=== PATIENT | female | born 1965 | race Caucasian/White ===

== ENCOUNTER 2019-05-01 04:56 | Inpatient (IN) ==
--- NOTE | 2019-04-10 13:05 | PAT Medication Instructions ---
Medication Instructions Date of Service April 10, 2019 Home Medications acetaminophen [Tylenol Extra Strength] 500 mg PO UD PRN ibuprofen 800 mg PO UD PRN ASK your surgeon for instructions ibuprofen 800 mg PO UD PRN Take morning of surgery With a small sip of water, OTHERWISE NOTHING TO EAT OR DRINK AFTER MIDNIGHT: acetaminophen [Tylenol Extra Strength] 500 mg PO UD PRN (okay to take up to 4 hours prior to surgery if needed) Take evening before surgery acetaminophen [Tylenol Extra Strength] 500 mg PO UD PRN (if needed) Other Notes If you have any questions please call us at [phone] or [phone] or [phone] or [phone]
--- NOTE | 2019-04-10 14:00 | Anesthesiology Consultation ---
Date of Service April 10, 2019 Assessment & Plan (1) Encounter for pre-operative examination: Chart Review Chart Review: Pending: Refer to Additional Notes / Consult section (pending preop testing (labs, EKG, CXR)) and Patient seen in Pre Admission Testing Teaching & Discussion Pre-Anesthesia Teaching/Discussion Notes: Instructed NPO after midnight before surgery,except medications with 15 cc of water. Medication instructions prov ided according to the PAT guidelines. History Surgery Operation Date: 05/01/19 12:30 Proposed Procedures p Right Total Hip Replacement - Grayson Gil MD Height/Weight Height: 5 ft 6 in Weight: 123.9 kg Allergies Allergy/AdvReac Type Severity Reaction Status Date / Time No Known Allergies Allergy Unverified 04/09/19 09:01 Medications Home Medications Medication Instructions Recorded Confirmed Last Taken acetaminophen [Tylenol Extra 500 mg PO UD PRN 04/09/19 04/09/19 Unknown Strength] ibuprofen 800 mg PO UD PRN 04/09/19 04/09/19 Unknown Past Medical History Medical History Venous ulcer of left leg hx; per wound clinic 03/26/19 ([facility]): no debridement required and discharged due to wound healing (surgeon aware) Degenerative joint disease (DJD) of hip Impaired mobility chronic LLE "stiffness" with limited ROM (hx knee dislocation) Morbid obesity Urinary incontinence chronic Exercise / Class Metabolic Activity III < 4 Walking/Shop/Light housework (uses walker PRN) Past Surgical History Surgical History H/O left breast biopsy + [facility] History of hysterectomy Past Anesthesia History No Hx of Anesthesia Complications and No Family Hx of Anesthesia Complications History of PONV No Hx of PONV and No Hx of Motion Sickness Social History Smoking Status: Never smoker Do You Dip or Chew Tobacco: No Hx Alcohol Use: No Hx Substance Use: No substance use type: does not use Review of Systems Patient denies chest pain, shortness of breath, reflux, cough, wheezing, palpitations. Physical Exam Vital Signs VITALS BP 135/71 P 64 TEMP 97.7 SP02 97%RA RESP 16 PHYSICAL Full neck and c-spine range of motion. Full TMJ range of motion. TMD 3 finger breaths Mallampati Score 1 Dentition: edentulous Lungs: clear throughout to auscultation Cardiac: regular rate and rhythm, no murmurs noted Spine: normal Carotid arteries: negative bruit Extremities: no edema
--- NOTE | 2019-04-10 15:18 | XRay Report ---
XR chest Pre-admission PA/Lat CLINICAL HISTORY: PAT preoperative evaluation COMPARISON STUDY: No previous studies for comparison. FINDINGS: The bones soft tissues and hemidiaphragms are normal. The cardiomediastinal silhouette is n ormal. The lungs are clear. The pulmonary vasculature is normal. IMPRESSION: Negative chest. The above report was generated using voice recognition software. It may contain grammatical, syntax or spelling errors. Electronically signed by: Andres Barbour M.D. 04/10/2019 3:17 PM
[2019-04-10 15:49] LABS: Basophils # (auto) 0.02 K/uL (0-0.2); Basophils % (auto) 0.3 %; Eosinophils # (auto) 0.23 K/uL (0-0.5); Eosinophils % (auto) 3.9 %; Lymphocytes # (auto) 2.01 K/uL (1.2-3.4); Lymphocytes % (auto) 33.8 %; Mean Corpuscular Hemoglobin 28.2 pg (25-34); Mean Corpuscular Hgb Conc 32.5 g/dL (32-36); Mean Corpuscular Volume 86.8 fL (80-100); Mean Platelet Volume 9.4 fL (7.4-10.4); Monocytes # (auto) 0.33 K/uL (0.11-0.59); Monocytes % (auto) 5.6 %; Neutrophils # (auto) 3.35 K/uL (1.4-6.5); Neutrophils % (auto) 56.4 %; Platelet Count 245 K/uL (130-400); RDW Coefficient of Variation 13.8 % (11.5-14.5); RDW Standard Deviation 43.7 fL (36.4-46.3); Red Blood Count 4.61 M/uL (4.2-5.4); White Blood Count 5.94 K/uL (4.8-10.8)
[2019-04-10 15:58] LABS: BUN Creatinine Ratio 26.1 (10-20); C Reactive Protein 1.13 mg/dl (0-0.29); Calcium 9.1 mg/dl (8.5-10.1); Creatinine Clr Calc Pharmacy 147.4 ml/min; Est GFR (African American) 121.5; Est GFR (Non-African American) 104.8; Potassium 3.7 mmol/L (3.5-5.1)
[2019-04-10 16:07] LABS: Partial Thromboplastin Time 26.1 Seconds (21.0-31.0); Prothrombin Time 10.3 Seconds (9.0-12.0)
--- NOTE | 2019-04-25 19:24 | History and Physical Report ---
DATE OF ADMISSION: 05/01/2019 CHIEF COMPLAINT: Right hip pain. HISTORY OF PRESENT ILLNESS: A 54-year-old female who presents for surgical treatment of right hip. The patient had about a year and half history of right hip pain and discomfort, describes it has gotten worse over time. She describes lateral hip pain, groin pain, thigh pain. She has actually resorted to using a walker to get around for the past 6-[address] Chopra initially who would not do her surgery due to her BMI. She also had a leg wound that she is getting to heal. We have been treating her conservatively without adequate relief. She has gotten leg wound to heal, would now like to have her right hip replaced. She has taken various medicines include hydrocodone, trying to manage her pain. She uses a walker. She has nighttime pain. She has attempted weight loss, but unsuccessful due to her limited mobility. PAST MEDICAL HISTORY: 1. Obesity with BMI of 44. 2. Spine arthritis. 3. Left leg wound. PAST SURGICAL HISTORY: Previous surgeries include: 1. Hysterectomy. 2. Oral surgery. ALLERGIES: None. CURRENT MEDICATIONS: 1. Tylenol. 2. Ibuprofen. SOCIAL HISTORY: A 54-year-old female. . Rare alcohol intake. Does not smoke. FAMILY HISTORY: Noncontributory. REVIEW OF SYSTEMS: Negative for diabetes, neurologic problems, vascular problems, bleeding disorders. Denies any chest pain or shortness of breath. No history of DVT or PE. PHYSICAL EXAMINATION: GENERAL: Fairly large middle-aged female, looks to be in reasonably good health. HEENT: Benign. NECK: Supple, no lymphadenopathy. LUNGS: Clear to auscultation. HEART: Regular rate and rhythm. ABDOMEN: Soft, nontender, nondistended. EXTREMITIES: Grossly neurovascularly intact except as follows. Examination of the right hip and leg reveals patient walks with markedly antalgic gait. She is using a walker to walk. There is no significant swelling in her right leg. She has mild edema diffusely. She is about half a centimeter short on the right side compared to the left. She has pain with any type of hip motion. She has got stiffness with hip motion. Examination of the left leg reveals her to be wearing a calf high WANDA stocking. She has got some mild chronic stasis changes. The wound from previously looks healed. No signs of cellulitis. X-RAYS: X-rays of the right hip were reviewed. It shows advanced right hip DJD. She has complete loss of her superior joint space. She has cystic change of the femoral head and acetabulum. She has got collapse of the femoral head. Bone density otherwise looks good. ASSESSMENT: A 54-year-old female with advanced right hip degenerative joint disease. She has failed conservative care. She has attempted weight loss unsuccessfully. She did have this left leg wound, which is likely related to underlying stasis, which is now healed and she would like to have her right hip fixed. PLAN: We will take her to the Operating Room and do a right total hip replacement. The risks and benefits of this procedure were explained to the patient including but not limited to DVT, PE, , infection, neurological injury, vascular injury, bleeding problem, pain, limited range of motion, stiffness, failure to relieve symptoms, incomplete relief of symptoms, need for further surgery in future, fracture, leg length inequality, nerve palsy, etc. The patient understands and desires to proceed. Informed consent was obtained. She is fully aware at her young age, this might need to be redone in the future. She has also had increased risk of infection with this stasis changes and this history of ulcer. She is aware of all this and would like to proceed. As far as discharge plans, she should be able to be discharged to home likely with some home health. LY
[2019-05-01] MEDS ORDERED: LR 60ML/HR IV SCH (06:00)
[2019-05-01] MEDS ORDERED: METOCLOPRAMIDE HCL 10 MG TABLET PO SCH (06:00)
[2019-05-01] MEDS ORDERED: GABAPENTIN 900 MG DOSE PO SCH (06:00)
[2019-05-01] MEDS ORDERED: LR 15ML/HR IV SCH (06:00)
[2019-05-01] MEDS ORDERED: CEFAZOLIN 3000MG 72.5 ML IV SCH (06:00)
[2019-05-01] MEDS ORDERED: FAMOTIDINE 20 MG TAB PO SCH (06:00)
[2019-05-01] MEDS ORDERED: ACETAMINOPHEN 500 MG TAB PO SCH (06:00)
[2019-05-01] MEDS ORDERED: LR 500ML BOLUS, THEN 15ML/HR IV SCH (06:00)
[2019-05-01] MEDS ORDERED: SCOPOLAMINE 1.5 MG TDSY TD SCH (06:00)
[2019-05-01] MEDS ORDERED: BUPIVACAINE 0.5 % 5 MG/1 ML PF 10ML VIAL ONE (06:22)
[2019-05-01] MEDS ORDERED: TRANEXAMIC ACID 1,000 MG **IV Intra-op IV SCH (06:30)
[2019-05-01] MEDS ORDERED: BUPIVACAINE/EPINEPHRINE 0.5% MPF 1:200,000 30 ML VIAL ONE (06:35)
[2019-05-01] MEDS ORDERED: BACITRACIN INJ 50,000 UNIT VIAL ONE (06:35)
[2019-05-01] MEDS ORDERED: MIDAZOLAM HCL 1 MG/ML 2ML VIAL ONE (06:39)
[2019-05-01] MEDS ORDERED: MoRPHine SULFATE PF 1 MG/ML 10 ML AMP/VIAL ONE (06:40)
[2019-05-01] MEDS ORDERED: fentaNYL citrate 100 MCG/2 ML VIAL ONE (06:40)
--- NOTE | 2019-05-01 06:55 | History & Physical Bridge Note ---
Date of Service May 01, 2019 History & Physical Bridge Note I have examined the patient, reviewed the History & Physical and in the interval since the performance of the History & Physical I have noted the following changes of clinical significance: no changes noted
[2019-05-01] MEDS ORDERED: LACTATED RINGER'S 500 ML IV PRN (07:04)
[2019-05-01] MEDS ORDERED: NALOXONE HCL 1 MG in SODIUM CHLORIDE 0.9% 1000ML 1,000 ML IV PRN (07:04)
[2019-05-01] MEDS ORDERED: NALOXONE HCL 0.4 MG/1 ML VIAL/CARP IV PRN ×2 (07:04→10:10)
[2019-05-01] MEDS ORDERED: NALBUPHINE HCL INJ 10 MG/ML AMP IV PRN (07:04)
[2019-05-01] MEDS ORDERED: KETOROLAC 30 MG/ML VIAL IV PRN (07:04)
[2019-05-01] MEDS ORDERED: MEPERIDINE HCL 25 MG/ML CARP IV PRN (07:04)
[2019-05-01] MEDS ORDERED: ONDANSETRON INJ 2 MG/ML 2 ML VIAL IV PRN (07:04)
[2019-05-01] MEDS ORDERED: MoRPHine SULFATE PF 1 MG/ML 10 ML AMP/VIAL INT SPINAL ONE (07:04)
[2019-05-01] MEDS ORDERED: NALOXONE HCL 0.08 MG in SYRINGE 1.8 ML IV PRN (07:04)
[2019-05-01] MEDS ORDERED: DiphenhydrAMINE HCL 50 MG/ML VIAL IV PRN (07:04)
[2019-05-01] MEDS ORDERED: ePHEDrine sulfate 50 MG/ML AMP IV PRN (07:04)
[2019-05-01] MEDS ORDERED: NO NARCOTICS OR SEDATIVES SCH (07:15)
[2019-05-01] MEDS ORDERED: SODIUM CHLORIDE 0.9% 1000ML 1,000 ML IV SCH (07:15)
[2019-05-01] MEDS ORDERED: DC INTRASPINAL MORPHINE SCH (07:15)
[2019-05-01] MEDS ORDERED: ePHEDrine sulfate 50 MG/ML AMP ONE (07:37)
[2019-05-01] MEDS ORDERED: PROPOFOL IV EMULSION 10 MG/ML 20 ML VIAL IV ONE (07:37)
[2019-05-01] MEDS ORDERED: LIDOCAINE HCL 2% 2 ML VIAL/AMP(20MG/ML) INFIL ONE (07:37)
--- NOTE | 2019-05-01 08:46 | Post Operative Brief Note ---
PG Immediate Post Op with CF Date of Surgery May 01, 2019 Pre & Post Diagnosis Operation Date: 05/01/19 07:00 Pre-Op Diagnosis: Right Hip Advanced Degenerative Joint Disease Post-Op Diagnosis: Right Hip Advanced Degenerative Joint Disease Procedure Operation Date: 05/01/19 07:00 Actual Procedures p Right Total Hip Arthroplasty--Uncemented(Right) - Grayson Gil MD Surgeon Grayson Gil MD Novelty Twister Operator Tomer, PAC Estimated Blood Loss 300 Findings Consistent with Post-Op Diagnosis Fluids 1000 cc Specimens Specimen Description: A. Right Femoral Head Drains Valencia Catheter (A 16 [place]ian valencia catheter was inserted by NAVID [place], without difficulty, clear yellow urine obtained, output to be monitored by Anesthesia.) Anesthesia Type Spinal MAC Complications none Disposition Disposition: Recovery Room
--- NOTE | 2019-05-01 09:27 | Anesthesiology Progress Note ---
Date of Service May 01, 2019 Anesthesia Post Procedure Vital Signs Vital Signs: Temp Pulse Pulse Resp BP Pulse Ox 05/01/19 09:25 97.9 F 73 18 114/55 L 96 05/01/19 09:15 78 14 99/62 L 95 05/01/19 09:05 77 21 116/60 100 05/01/19 08:55 77 24 115/48 L 100 05/01/19 08:49 97.7 F 81 15 103/54 L 96 05/01/19 05:31 98.2 F 74 20 143/77 H 96 Transfer of Care Handoff Completed per policy Notes Mental Status: alert / awake / arousable and participated in evaluation Patient Amnestic to Procedure: Yes Nausea / Vomiting: adequately controlled Pain: adequately controlled Airway Patency, RR, SpO2: stable & adequate BP & HR: stable & adequate Hydration State: stable & adequate Neuraxial Anesthesia: was administered and sensory block is resolving Anesthetic Complications: no major complications apparent and Pt Satisfied with anesthetic care
--- NOTE | 2019-05-01 09:31 | XRay Report ---
SINGLE VIEW PELVIS; SINGLE VIEW RIGHT HIP CLINICAL HISTORY: Postoperative examination. FINDINGS: An AP portable view of the hips and pelvis with a crosstable lateral portable view of the r ight hip are obtained. A bipolar right hip arthroplasty is in near-anatomic alignment. A single corti reyna lag screw transfixes the acetabular cup. No acute fracture is identified. There are expected post operative changes overlying the right hip including skin clips, subcutaneous gas, and soft tissue swe lling. IMPRESSION: Expected postoperative findings status post right hip arthroplasty. No acute fracture is seen. Electronically signed by: Joss Silver M.D. 05/01/2019 9:30 AM
--- NOTE | 2019-05-01 09:36 | Operative Report ---
DATE OF OPERATION: 05/01/2019 SURGEON: Grayson Gil MD. RECORD TABULATING CLERK: NAVID Santos. PREOPERATIVE DIAGNOSIS: Right hip degenerative joint disease. POSTOPERATIVE DIAGNOSIS: Right hip degenerative joint disease. PROCEDURE PERFORMED: Right uncemented ceramic on highly cross-linked polyethylene total hip arthroplasty. COMPLICATIONS: None. ESTIMATED BLOOD LOSS: 300 mL. FLUID REPLACEMENT: 1000 mL of crystalloid fluid replacement. ANESTHESIA: Spinal. DRAINS: None. SPECIMENS: Right femoral head sent for pathology. OPERATIVE INDICATIONS: The patient is a 54-year-old female who has had about a year history of markedly increased right hip pain and discomfort, unresponsive to conservative care. X-rays showed severe progressive hip arthritis with collapse of the femoral head. She had failed conservative treatment and elected to proceed with operative intervention. She did have a left leg wound from venous stasis changes and we had to get that healed up prior to surgery. OPERATIVE FINDINGS: Revealed advanced right hip DJD. She had grade 4 [id number] disease of the femoral head and acetabulum. She had moderate size joint effusion. A large soft tissue envelope. OPERATIVE IMPLANTS: Consisted of: 1. Biomet size 52 G7 acetabular shell. 2. 6.5 cancellous acetabular screws, one at 35 mm in length and one at 20 mm in length. 3. An apex hole eliminator. 4. A highly cross-linked polyethylene liner with 52 mm outer diameter, 36 mm inner diameter. 5. DePuy Corail size 9 KLA femoral stem. 6. A +5/36 mm ceramic articular ball. OPERATIVE PROCEDURE: The patient was taken to the operating room, identified and placed on the operating table in supine position. All contact areas were appropriately padded. IV antibiotics were provided by anesthesia team. Spinal anesthetic had been implemented in the holding area. Pike catheter was placed in sterile fashion. The patient was then placed in the left lateral decubitus position. An axillary roll was placed. Stlberg hip positioner was used for positioning. Right hip and leg were then prepped and draped in usual sterile fashion. A posterolateral approach to the right hip was then performed through a curvilinear incision centered over the greater trochanter. Sharp dissection was carried through the subcutaneous tissue down to the level of the IT band and gluteal fascia. There was a very large thick soft tissue envelope. The IT band and gluteal fascia were incised longitudinally in line with skin incision. The underlying greater trochanteric bursa was excised. The piriformis and external rotators and the posterior capsule were then released from the posterior aspect of the hip joint as a single layer. Great care was taken throughout the procedure to protect the sciatic nerve at all times. Hip was internally rotated and dislocated. Femoral neck osteotomy cut was made with final cut about 7 mm above the lesser trochanter. Femoral head was removed and sent for pathology. The femur was retracted anteriorly. Attention was then drawn to the acetabulum. The acetabulum labrum was excised. The pulvinar fat was excised. Sequential reaming of the acetabulum was then performed beginning with size 45 and progressing up to 51. A 52 mm Biomet G7 acetabular shell was then placed in about 40 degrees of lateral opening and 20 degrees of anteversion. It was fixed with two 6.5 cancellous acetabular screws. Some small anterior osteophytes were removed. Trial liner was placed. Attention was then drawn to the femur. The proximal femur was entered with Partlyie cutter followed by canal finder. I then broached beginning with a size 8 and progressed to a 9. We got excellent fit with the 9. I really could not quite get this down to the calcar cut. We then trialed the hip and the +5 articular ball seemed to recreate soft tissue tension appropriately and was fully stable in full extension and external rotation, flexion to 90 degrees, internal rotation to over [address] I elected to place these implants. All trial implants were removed. An apex hole eliminator was placed. Highly cross-linked polyethylene liner was placed. A DePuy Corail size 9 KLA femoral stem was impacted in position, which left just slightly proud. A +5/36 mm ceramic articular ball was placed and the hip was located. Once again found to be stable. Attention was then drawn toward closing. The wound was irrigated with copious amounts of pulsatile lavage solution. I did inject locally with 60 mL of 0.5% Marcaine with epinephrine. The posterior capsule and external rotators were repaired as a single layer through drill holes in the posterior trochanter with #2 Ti-Cron suture. The IT band and gluteal fascia were then closed with #1 PDS suture in running fashion. Subcutaneous tissue was then closed in 2 layers, the deep layer with #2 Vicryl suture and subcutaneous tissue with 2-0 Dexon suture in a buried interrupted fashion. The skin was closed with skin fazal. Leg was then cleaned, dried and a sterile dressing of Xeroform, 4 x 4s, ABD pad and foam tape was applied. The patient was transferred to the recovery room in stable condition. The patient tolerated the procedure well with no complications. All needle and sponge counts were correct at the end of the operation. I attest to the content of the Intraoperative Record and any orders documented therein. Any exceptions are noted below. ODETTED
[2019-05-01] MEDS ORDERED: bisacodyL 10 MG SUPP PR PRN (10:10)
[2019-05-01] MEDS ORDERED: ALUMINUM/MAGNESIUM SUSP 30 ML UDC PO PRN (10:10)
[2019-05-01] MEDS ORDERED: MAGNESIUM HYDROXIDE SUSP 30 ML UDC PO PRN (10:10)
[2019-05-01] MEDS ORDERED: OXYCODONE HCL IR 5 MG TAB (IMMEDIATE RELEASE) PO PRN (10:10)
[2019-05-01] MEDS ORDERED: METOCLOPRAMIDE HCL INJ 5 MG/ML 2 ML VIAL IV PRN (10:10)
[2019-05-01] MEDS ORDERED: HYDROmorphone INJ 0.5 MG/0.5 ML SYR IV PRN (10:10)
[2019-05-01] MEDS: DOCUSATE SODIUM 100 MG CAP PO SCH ×2 (12:02→21:23)
[2019-05-01] MEDS: MULTIVITAMIN TAB PO SCH (12:02)
[2019-05-01] MEDS: ASPIRIN 81 MG ECTAB PO SCH ×2 (12:02→21:23)
[2019-05-01] MEDS: ACETAMINOPHEN 500 MG TAB PO SCH ×2 (13:06→21:24)
[2019-05-01] MEDS: SODIUM CHLORIDE 0.9% 1000ML 1,000 ML IV SCH ×2 (13:06→15:27)
[2019-05-01] MEDS: KETOROLAC 30 MG/ML VIAL IV SCH ×2 (13:07→19:08)
[2019-05-01] MEDS ORDERED: NURSING DECISION MEDICATION ONE (13:22)
--- NOTE | 2019-05-01 13:25 | Progress Note ---
DATE: 05/01/2019 SUBJECTIVE: 54-year-old female postop from right hip replacement. She is doing well. Not having any pain yet. No chest pain or shortness of breath. Not feeling dizzy or lightheaded. OBJECTIVE: VITAL SIGNS: Temperature 36.4. Vital signs stable. GENERAL: Shows a pleasant, middle-aged female. She is sitting up in bed, looks quite comfortable. LUNGS: Clear to auscultation. HEART: Regular rate and rhythm. ABDOMEN: Soft, nontender, nondistended. EXTREMITIES: Grossly neurovascularly intact except as follows: Examination of the right lower extremity reveals the leg lengths to be equal. Her dressing is clean, dry and intact. Thigh is soft and supple. She is neurologically intact. She can dorsiflex and plantarflex her foot appropriately. X-RAYS: The right hip from recovery room reviewed. It shows right uncemented total hip arthroplasty. Components looked to be in good position. No signs of problems. ASSESSMENT: 54-year-old female postop from a right hip replacement, doing well. Pain is controlled. Hip is located. She is neurologically intact. PLAN: 1. DVT prophylaxis including thigh-high TEDs, SCDs, and aspirin twice a day. 2. PT/OT. Weight bear as tolerated. Right total hip protocol. 3. Pain control, doing well with current pain regimen. 4. IV antibiotics x24 hours. 5. Disposition: She is hoping to be discharged to home likely with some home health once adequately recovered and medically stable.
[2019-05-01] MEDS: CEFAZOLIN 2000MG 2,000 MG/15 ML SYR IV SCH ×2 (14:37→22:00)
[2019-05-01] MEDS ORDERED: TRANEXAMIC ACID 1,000 MG in 0.9 % SODIUM CHLORIDE 100 ML IV SCH (15:00)
[2019-05-01] MEDS: MICONAZOLE NITRATE POWDER 43 GM EXT PRN (15:24)
[2019-05-01] MEDS: CHECK SCOPOLAMINE PATCH PLACEMENT SCH (15:24)
[2019-05-01] MEDS: FERROUS GLUCONATE 324 MG TAB PO SCH (17:41)
[2019-05-01] MEDS: ASCORBIC ACID 500 MG TAB PO SCH (17:41)
[2019-05-01] MEDS: SENNA 8.6 MG TAB PO SCH (21:23)
[2019-05-02] MEDS: CHECK SCOPOLAMINE PATCH PLACEMENT SCH (01:00)
[2019-05-02] MEDS: KETOROLAC 30 MG/ML VIAL IV SCH ×5 (01:01→23:51)
[2019-05-02] MEDS ORDERED: ONDANSETRON INJ 2 MG/ML 2 ML VIAL IV PRN (01:05)
[2019-05-02] MEDS: ACETAMINOPHEN 500 MG TAB PO SCH ×3 (05:53→21:44)
[2019-05-02 05:58] LABS: Basophils # (auto) 0.02 K/uL (0-0.2); Basophils % (auto) 0.2 %; Eosinophils # (auto) 0.21 K/uL (0-0.5); Eosinophils % (auto) 2.4 %; Hematocrit (blood only) 34.6 % (37-47); Hemoglobin 11.1 g/dL (12.0-16.0); Immature Granulocytes # (auto) 0.01 K/uL (0.00-0.02); Immature Granulocytes % (auto) 0.1 %; Lymphocytes # (auto) 1.42 K/uL (1.2-3.4); Mean Corpuscular Hemoglobin 28.2 pg (25-34); Mean Corpuscular Hgb Conc 32.1 g/dL (32-36); Mean Corpuscular Volume 87.8 fL (80-100); Mean Platelet Volume 9.1 fL (7.4-10.4); Monocytes # (auto) 0.76 K/uL (0.11-0.59); Monocytes % (auto) 8.5 %; Neutrophils # (auto) 6.47 K/uL (1.4-6.5); Neutrophils % (auto) 72.8 %; Platelet Count 174 K/uL (130-400); RDW Coefficient of Variation 14.2 % (11.5-14.5); RDW Standard Deviation 45.5 fL (36.4-46.3); Red Blood Count 3.94 M/uL (4.2-5.4); White Blood Count 8.89 K/uL (4.8-10.8)
[2019-05-02 06:24] LABS: Calcium 8.1 mg/dl (8.5-10.1); Creatinine Clr Calc Pharmacy 135.8 ml/min; Est GFR (African American) 118.9; Est GFR (Non-African American) 102.6; Potassium 3.9 mmol/L (3.5-5.1)
--- NOTE | 2019-05-02 07:41 | Progress Note ---
DATE: 05/02/2019 SUBJECTIVE: A 54-year-old white female postop day 1 from right total hip replacement. She is doing well. Denies any significant pain. Denies any chest pain or shortness of breath. Not feeling dizzy or lightheaded. OBJECTIVE: VITAL SIGNS: Temperature 36.4. Vital signs stable. GENERAL: Physical examination shows a pleasant, middle-aged female. She is sitting up in bed and doing some crocheting this morning. EXTREMITIES: Examination of the right hip and leg reveals the leg lengths are equal. Dressing is clean, dry and intact. Thigh is soft and supple. She can dorsiflex and plantarflex her foot appropriately. LABORATORY DATA: Hemoglobin 11.1. Hematocrit 34.6. Electrolytes are stable. ASSESSMENT: A 54-year-old white female postoperative day 1 from right hip replacement, doing well. Pain is controlled. Hip is located. She is neurologically intact. PLAN: 1. DVT prophylaxis including thigh-high TEDs, SCDs, and aspirin twice a day. 2. PT/OT. Weight bear as tolerated. Right total hip protocol. 3. Pain control, doing pretty well with current pain regimen. 4. Disposition: She is planning to be discharged to home with some home health once medically stable. We will see how therapy goes today.
[2019-05-02] MEDS: MULTIVITAMIN TAB PO SCH (08:55)
[2019-05-02] MEDS: FERROUS GLUCONATE 324 MG TAB PO SCH ×2 (08:55→18:00)
[2019-05-02] MEDS: ASPIRIN 81 MG ECTAB PO SCH ×2 (08:55→21:44)
[2019-05-02] MEDS: DOCUSATE SODIUM 100 MG CAP PO SCH ×2 (08:55→21:44)
[2019-05-02] MEDS: ASCORBIC ACID 500 MG TAB PO SCH ×2 (08:55→18:00)
[2019-05-02] MEDS: SENNA 8.6 MG TAB PO SCH (21:44)
[2019-05-02] MEDS: MICONAZOLE NITRATE POWDER 43 GM EXT PRN (21:46)
[2019-05-03 00:25] VITALS: O2SAT 96
[2019-05-03] MEDS: KETOROLAC 30 MG/ML VIAL IV SCH (02:19)
[2019-05-03] MEDS: ACETAMINOPHEN 500 MG TAB PO SCH (05:31)
[2019-05-03 07:02] VITALS: BP 115/76; PULSE 82; TEMP 98.2
--- NOTE | 2019-05-03 08:12 | Progress Note ---
DATE: 05/03/2019 SUBJECTIVE: A 54-year-old white female postop day 2 from right hip replacement. She is doing well. Complains of no pain. No chest pain or shortness of breath. Not feeling dizzy or lightheaded. Therapy went well. OBJECTIVE: VITAL SIGNS: Temperature 36.8. Vital signs stable. GENERAL: Physical examination shows a pleasant, middle-aged female. She is sitting up at her bedside chair, looks pretty comfortable. EXTREMITIES: Examination of the right hip reveals incision to be clean, dry and intact. Just a little bit of serous drainage. Leg lengths are equal. Hip is located. She is neurologically intact. ASSESSMENT: A 54-year-old white female postoperative day 2 from right hip replacement, doing well. Therapy went well. Pain is controlled. She is neurologically intact. PLAN: 1. DVT prophylaxis including thigh-high TEDs, SCDs, and aspirin twice a day. 2. PT/OT. Weight bear as tolerated. Right total hip protocol. 3. Pain control, doing well with current pain regimen. 4. Disposition: Plan to discharge her home with some home health later today.
[2019-05-03] MEDS: DOCUSATE SODIUM 100 MG CAP PO SCH (09:39)
[2019-05-03] MEDS: ASPIRIN 81 MG ECTAB PO SCH (09:39)
[2019-05-03] MEDS: FERROUS GLUCONATE 324 MG TAB PO SCH (09:39)
[2019-05-03] MEDS: MULTIVITAMIN TAB PO SCH (09:39)
[2019-05-03] MEDS: ASCORBIC ACID 500 MG TAB PO SCH (09:39)
--- NOTE | 2019-05-09 03:13 | Discharge Summary ---
ADMITTING PHYSICIAN AND SURGEON: Dr. Grayson Gil. ADMITTING DIAGNOSIS: Right hip degenerative joint disease. SURGERY PERFORMED: Right total hip arthroplasty. SECONDARY DIAGNOSES: Obesity, spinal arthritis and left leg wound. CONSULTS: None obtained. HISTORY AND PHYSICAL EXAMINATION: Well documented in the patient's chart. HOSPITAL COURSE: The patient was admitted on 05/01/2019, underwent total hip arthroplasty, tolerated the procedure well. There were no complications. She was transferred to the PACU postoperatively and later to the orthopedic floor for further care. She was given Ancef for antibiotic prophylaxis, WANDA stockings, SCDs and aspirin for DVT prophylaxis. Hemoglobin, hematocrit and vital signs were monitored during her hospital stay and remained stable. She did not require any blood transfusions. There were no complications. By postoperative day 2, she was tolerating a regular diet, pain was controlled with oral pain medicine. She was participating in physical therapy. On postop day 2, she was discharged home, set up with home health services. She was given printed discharge instruction as well as prescriptions for extra-strength Tylenol, aspirin and oxycodone. Continue her home medicines. Continue physical therapy, weightbearing as tolerated, WANDA stockings, total hip precautions. Follow up approximately in 2 weeks postop or sooner if there are any problems or concerns.
== END 2019-05-03 14:20 | disposition home health service (06) | DRG 470 ==
LOC: ASU 04:56 → 3E 08:50